=== PATIENT | female | born 1940 | race Hispanic/Latino ===

== ENCOUNTER → 2018-08-05 | Outpatient (CLI) | payer MEDICARE ==
[~2018-08-05] MED LIST: CYAN10009 PO; GABA300S PO; MECL25TA3 PO; MELA1TAB17 PO; METO100T14 PO; PRED5TAB PO; SIMV40TA59 PO
== END | disposition home or self-care (01) ==
LOC: RAH 10:55
PROVIDERS: ATTEND Internal Medicine Medical Oncology
DX: R92.2 Inconclusive mammogram (principal); I10 Essential (primary) hypertension; E11.9 Type 2 diabetes mellitus without complications; E78.5 Hyperlipidemia, unspecified; M19.90 Unspecified osteoarthritis, unspecified site; K21.9 Gastro-esophageal reflux disease without esophagitis; I25.10 Atherosclerotic heart disease of native coronary artery without angina pectoris; Z85.3 Personal history of malignant neoplasm of breast; Z90.12 Acquired absence of left breast and nipple
CPT/HCPCS: 77065

== ENCOUNTER → 2019-04-02 | Outpatient (CLI) | payer MEDICARE | END | disposition home or self-care (01) | LOC: RAH 13:11 | PROVIDERS: ATTEND Internal Medicine | DX: M47.816 Spondylosis without myelopathy or radiculopathy, lumbar region (principal); M48.061 Spinal stenosis, lumbar region without neurogenic claudication; M51.26 Other intervertebral disc displacement, lumbar region | CPT/HCPCS: 72148 ==

== ENCOUNTER → 2019-04-29 | Outpatient (CLI) | payer MEDICARE | END | disposition home or self-care (01) | LOC: RAH 07:38 | PROVIDERS: ATTEND Internal Medicine | DX: K80.20 Calculus of gallbladder without cholecystitis without obstruction (principal); N26.1 Atrophy of kidney (terminal) | CPT/HCPCS: 76700 ==

== ENCOUNTER → 2019-12-09 | Outpatient (CLI) | payer MEDICARE ==
[~2019-12-09] MED LIST changes: +ALBUTEROL SULFATE 0.083% 2.5 MG/3 ML INH IH ONE; +CYAN-52 PO; -CYAN10009 PO
[2019-12-09 11:28] LABS: BASOPHILS % (AUTO) 0.8 % (0.0-5.0); EOSINOPHILS % (AUTO) 2.9 % (0.0-8.0); HEMATOCRIT 39.9 % (36-48); LYMPHOCYTES % (AUTO) 27.1 % (21.0-51.0); MEAN CORPUSCULAR HEMOGLOBIN 26.1 pg (27.0-33.0); MEAN CORPUSCULAR HGB CONC 30.6 g/dL (32.0-36.0); MEAN CORPUSCULAR VOLUME 85.3 fL (79-99); MONOCYTES % (AUTO) 7.1 % (3.0-13.0); NEUTROPHILS % (AUTO) 61.8 % (40.0-77.0); PLATELET COUNT (AUTO) 285 K/uL (130-400); RED BLOOD CELL COUNT(AUTO) 4.68 MIL/uL (4.00-5.50); RED CELL DISTRIBUTION WIDTH 15.2 % (11.0-15.5); WHITE BLOOD COUNT (AUTO) 6.5 K/uL (4.8-10.8)
[2019-12-09 11:38] LABS: APPEARANCE,URINE Clear (CLEAR); BILIRUBIN,URINE Negative (NEGATIVE); COLOR,URINE Yellow (YELLOW); GLUCOSE, URINE (UA) Negative (NEGATIVE); KETONES,URINE Negative (NEGATIVE); LEUKOCYTE ESTERASE ,URINE Negative (NEGATIVE); NITRATE,URINE Negative (NEGATIVE); OCCULT BLOOD,URINE Negative (NEGATIVE); PH,URINE 5.5 (5.0-8.0); PROTEIN,URINE Negative (NEGATIVE)
[2019-12-09 11:44] LABS: ALBUMIN 3.3 g/dL (3.5-5.0); BILIRUBIN,TOTAL 0.3 mg/dL (0.2-1.0); CREATININE 0.7 mg/dL (0.5-1.5); POTASSIUM 4.7 mmol/L (3.5-5.1); TOTAL PROTEIN, SERUM 7.2 g/dL (6.0-8.3)
--- NOTE | 2019-12-09 11:48 | NUR ---
Patient unable to perform N2 Washout due poor inspiratory effort and complained of dizziness. Addendum: 12/09/19 at 1149 by MARCI TIMMONS Amended: Links added.
== END | disposition home or self-care (01) ==
LOC: RESP 09:46
PROVIDERS: ATTEND Internal Medicine Rheumatology
DX: J44.9 Chronic obstructive pulmonary disease, unspecified (principal); M34.9 Systemic sclerosis, unspecified
CPT/HCPCS: 36415; 80053; 81003; 82977; 83516; 85025; 94060; 94729

== ENCOUNTER → 2019-12-21 | Outpatient (CLI) | payer MEDICARE ==
[~2019-12-21] MED LIST changes: -ALBUTEROL SULFATE 0.083% 2.5 MG/3 ML INH IH ONE
== END | disposition home or self-care (01) ==
LOC: RAH 08:26
PROVIDERS: ATTEND Internal Medicine Rheumatology
DX: I08.3 Combined rheumatic disorders of mitral, aortic and tricuspid valves (principal); M34.9 Systemic sclerosis, unspecified; R55 Syncope and collapse
CPT/HCPCS: 93306

== ENCOUNTER → 2021-06-23 | Outpatient (CLI) | payer MEDICARE ==
[2021-06-23 13:07] LABS: CREATININE 0.9 mg/dL (0.5-1.5); POTASSIUM 4.4 mmol/L (3.5-5.1)
== END | disposition home or self-care (01) ==
LOC: LAB 12:08
PROVIDERS: ATTEND Internal Medicine Medical Oncology
DX: R51.9 Headache, unspecified (principal)
CPT/HCPCS: 36415; 80048; 83880

== ENCOUNTER → 2021-06-26 | Outpatient (CLI) | payer MEDICARE ==
[~2021-06-26] MED LIST changes: +GADOTERATE MEGLUMINE 10 MMOL/20 ML VIAL IV ONE
== END | disposition home or self-care (01) ==
LOC: CANPRECLI → RAH 12:42
PROVIDERS: ATTEND Internal Medicine Medical Oncology
DX: I67.82 Cerebral ischemia (principal); R51.9 Headache, unspecified
CPT/HCPCS: 70553; A9575

== ENCOUNTER → 2021-07-06 | Outpatient (CLI) | payer MEDICARE ==
[~2021-07-06] MED LIST changes: -GADOTERATE MEGLUMINE 10 MMOL/20 ML VIAL IV ONE
== END | disposition home or self-care (01) ==
LOC: RAH 09:13
PROVIDERS: ATTEND Internal Medicine
DX: M51.17 Intervertebral disc disorders with radiculopathy, lumbosacral region (principal); M48.07 Spinal stenosis, lumbosacral region; M25.551 Pain in right hip; M85.859 Other specified disorders of bone density and structure, unspecified thigh
CPT/HCPCS: 72100; 73502

== ENCOUNTER → 2022-05-24 | Outpatient (CLI) | payer OTHER | END | disposition home or self-care (01) | LOC: RAH 08:00 | PROVIDERS: ATTEND Internal Medicine | DX: K74.60 Unspecified cirrhosis of liver (principal); R63.4 Abnormal weight loss | CPT/HCPCS: 76700 ==

== ENCOUNTER 2022-07-25 16:48 | Emergency (ER) | payer OTHER ==
[~2022-07-25] VITALS: Ht 154.9 cm; Wt 44.9 kg
[2022-07-25] MEDS ORDERED: LACTATED RINGERS 1000ML 1,000 ML IV ONE (18:00)
[2022-07-25 19:00] LABS: BASOPHILS % (AUTO) 0.9 % (0.0-5.0); EOSINOPHILS % (AUTO) 4.2 % (0.0-8.0); HEMATOCRIT 37.3 % (36-48); LYMPHOCYTES % (AUTO) 20.6 % (21.0-51.0); MEAN CORPUSCULAR HEMOGLOBIN 27.4 pg (27.0-33.0); MEAN CORPUSCULAR HGB CONC 33.2 g/dL (32.0-36.0); MEAN CORPUSCULAR VOLUME 82.3 fL (79-99); MONOCYTES % (AUTO) 8.9 % (3.0-13.0); NEUTROPHILS % (AUTO) 65.1 % (40.0-77.0); PLATELET COUNT (AUTO) 279 K/uL (130-400); RED BLOOD CELL COUNT(AUTO) 4.53 MIL/uL (4.00-5.50); RED CELL DISTRIBUTION WIDTH 14.9 % (11.0-15.5); WHITE BLOOD COUNT (AUTO) 9.4 K/uL (4.8-10.8)
[2022-07-25 19:06] LABS: CREATININE 1.2 mg/dL (0.5-1.5); POTASSIUM 4.5 mmol/L (3.5-5.1)
[2022-07-25 19:17] LABS: ALBUMIN 2.9 g/dL (3.5-5.0); TOTAL PROTEIN, SERUM 6.9 g/dL (6.0-8.3)
[2022-07-25 23:27] VITALS: BP 109/73
[2022-07-27] MEDS ORDERED: DONE5TAB33 PO (13:56)
[2022-07-27] MEDS ORDERED: PANT40GR PO (13:56)
[2022-07-27] MEDS ORDERED: FERR325T29 PO (13:56)
[2022-07-27] MEDS ORDERED: QUET25TA36 PO (13:56)
[2022-07-27] MEDS ORDERED: POTA20LI52 PO (13:56)
[2022-07-27] MEDS ORDERED: INSU100V37 SQ (13:56)
[2022-07-27] MEDS ORDERED: LEVO-171 PO (13:56)
[2022-07-27] MEDS ORDERED: MEMA28CA16 PO (13:56)
[2022-07-27] MEDS ORDERED: CERT200K SQ (13:56)
[2022-07-27] MEDS ORDERED: LATA2.5D14 OP (13:56)
[2022-07-27] MEDS ORDERED: PENT100C9 PO (13:56)
[2022-07-27] MEDS ORDERED: CIPR500S5 PO (13:56)
[2022-07-27] MEDS ORDERED: RISP0.5T61 PO (13:56)
[2022-07-27] MEDS ORDERED: TRAZ-187 PO (13:56)
== END 2022-07-25 23:30 | disposition left against medical advice (07) ==
LOC: EDH 16:48
DX: K56.609 Unspecified intestinal obstruction, unspecified as to partial versus complete obstruction (principal); R11.2 Nausea with vomiting, unspecified; E78.00 Pure hypercholesterolemia, unspecified; I10 Essential (primary) hypertension; Z79.52 Long term (current) use of systemic steroids; Z79.899 Other long term (current) drug therapy; Z88.0 Allergy status to penicillin
CPT/HCPCS: 99285; 74176; 96360; 96361; 84484; 80053; 83690; 85025; 36415; 93005; J7120

== ENCOUNTER → 2022-08-28 | Outpatient (CLI) | payer OTHER ==
[~2022-08-28] MED LIST changes: +CERT200K SQ; +DONE5TAB33 PO; +FERR325T29 PO; -GABA300S PO; +INSU100V37 SQ; +LATA2.5D14 OP; +LEVO-171 PO; -MECL25TA3 PO; -MELA1TAB17 PO; +MEMA28CA16 PO; +PANT40GR PO; +PENT100C9 PO; +POTA20LI52 PO; +QUET25TA36 PO; +RISP0.5T61 PO; -SIMV40TA59 PO; +TRAZ-187 PO
== END | disposition home or self-care (01) ==
LOC: RAH 10:02
PROVIDERS: ATTEND Internal Medicine Gastroenterology
DX: R10.13 Epigastric pain (principal); R11.0 Nausea
CPT/HCPCS: 78264; A9541